=== PATIENT | male | born 1995 | race Asian ===

== ENCOUNTER 2023-09-04 20:08 | Emergency (ER) | payer OTHER, SELFPAY ==
[2023-09-04 20:33] VITALS: BP 138/86; PULSE 95; RESP 18; TEMP 37.1; O2SAT 98; BMI 24.8
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
[2023-09-04 21:16] LABS: Amphetamine Screen Urine Not Detected (Not Detect); Barbiturates, Urine Not Detected (Not Detect); Benzodiazepines Screen Urine Not Detected (Not Detect); Cannabinoid Screen Urine Not Detected (Not Detect); Cocaine Screen Urine Not Detected (Not Detect); Fentanyl, urine Not Detected (Not Detect); Opiate Screen Urine Not Detected (Not Detect); Phencyclidine Screen Urine Not Detected (Not Detect)
[2023-09-05 02:15] VITALS: BP 134/88; PULSE 88; RESP 16; O2SAT 98
--- NOTE | 2023-09-05 02:21 | PC.NURSE ---
states wait is too long and wants to go home.
== END 2023-09-05 02:21 | disposition left against medical advice (07) ==
PROVIDERS: Physician Assistant; Emergency Provider Emergency Medicine
DX: R20.0 Anesthesia of skin (principal); Z79.899 Other long term (current) drug therapy
CPT/HCPCS: 80307; 99282; 99284

== ENCOUNTER 2023-09-05 14:16 | Emergency (ER) | payer OTHER, SELFPAY ==
[2023-09-05 15:34] VITALS: BP 134/89; PULSE 86; RESP 17; TEMP 36.8; O2SAT 99; BMI 24.6
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
[2023-09-05 16:04] LABS: Appearance Urine Clear; Color Urine Yellow; Glucose Urine UA Negative (Negative); Leukocyte Esterase Urine Negative (Negative); Nitrite Urine Negative (Negative); Urine Blood Negative (Negative); Urine Ketones Negative (Negative); Urine Protein Negative (Neg-Trace)
[2023-09-05 16:06] LABS: Amphetamine Screen Urine Not Detected (Not Detect); Barbiturates, Urine Not Detected (Not Detect); Benzodiazepines Screen Urine Not Detected (Not Detect); Cannabinoid Screen Urine Not Detected (Not Detect); Cocaine Screen Urine Not Detected (Not Detect); Fentanyl, urine Not Detected (Not Detect); Opiate Screen Urine Not Detected (Not Detect); Phencyclidine Screen Urine Not Detected (Not Detect)
[2023-09-05 16:18] LABS: COVID-19 Test Negative (Negative); IDNOW Serial# 08D9AD1C
[2023-09-05 16:40] VITALS: BP 128/89; PULSE 89; RESP 18; O2SAT 99
== END 2023-09-05 16:44 | disposition home or self-care (01) ==
PROVIDERS: Physician Assistant Medical; Emergency Provider Emergency Medicine
DX: R20.0 Anesthesia of skin (principal); Z79.899 Other long term (current) drug therapy; Z11.52 Encounter for screening for COVID-19; Z20.822 Contact with and (suspected) exposure to COVID-19
CPT/HCPCS: 80307; 81003; 87635; 99283; 99284

== ENCOUNTER 2023-09-07 00:53 | Emergency (ER) | payer OTHER, SELFPAY ==
[2023-09-07 00:59] VITALS: BP 118/81; PULSE 105; RESP 16; TEMP 36.9; O2SAT 96; BMI 24.3
[2023-09-07 01:31] LABS: Hematocrit 47.4 % (42.0-52.0); Hemoglobin 16.7 g/dl (14.0-18.0); Mean Corpuscular HGB Conc 35.2 g/dl (31.0-36.0); Mean Corpuscular Hemoglobin 30.8 pg (27.0-33.0); Mean Corpuscular Volume 87.3 fL (80.0-98.0); Mean Platelet Volume 9.7 fL (9.4-12.4); Platelet Count 299 X10*3/uL (160-400); Red Blood Count 5.43 X10*6/uL (4.60-5.80); Red Cell Distribution Width 11.9 % (11.0-16.0); White Blood Count 10.9 X10*3/uL (4.8-10.8)
[2023-09-07 01:45] LABS: Alanine Aminotransferase 25 U/L (0-40); Albumin Level 4.5 g/dL (3.5-5.0); Alkaline Phosphatase 70 U/L (39-117); Anion Gap 13 (12-20); Aspartate Amino Transferase 18 U/L (5-37); Bilirubin Total 0.4 mg/dL (0.0-1.0); Blood Urea Nitrogen 9 mg/dL (9-16); Calcium 9.3 mg/dL (8.4-10.2); Carbon Dioxide 22 mmol/L (22-29); Chloride 108 mmol/L (96-108); Creatinine Clr Calc Pharmacy 120.4; Estimated Glomerular Filt Rate > 60; Glucose Random 105 mg/dL (60-115); Potassium 3.7 mmol/L (3.3-5.1); Sodium 139 mmol/L (135-145); Total Protein 7.4 g/dL (6.5-8.0)
[2023-09-07 01:46] LABS: Amphetamine Screen Urine Not Detected (Not Detect); Barbiturates, Urine Not Detected (Not Detect); Benzodiazepines Screen Urine Not Detected (Not Detect); Cannabinoid Screen Urine Not Detected (Not Detect); Cocaine Screen Urine Not Detected (Not Detect); Fentanyl, urine Not Detected (Not Detect); Opiate Screen Urine Not Detected (Not Detect); Phencyclidine Screen Urine Not Detected (Not Detect)
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
== END 2023-09-07 02:38 | disposition home or self-care (01) ==
PROVIDERS: Emergency Provider Student in an Organized Health Care Education/Training Program
DX: R42 Dizziness and giddiness (principal); Z79.899 Other long term (current) drug therapy
CPT/HCPCS: 36415; 80053; 80307; 85027; 99283; 99284

== ENCOUNTER 2023-11-03 09:53 | Emergency (ER) | payer OTHER, SELFPAY ==
[2023-11-03 09:58] VITALS: BP 122/84; PULSE 103; RESP 18; TEMP 35.9; O2SAT 96; BMI 23.2
--- NOTE | 2023-11-03 10:32 | ED.GENADULT ---
HPI - General Adult General Chief complaint: Dental/Oral Stated complaint: dental pain Time Seen by Provider: 11/03/23 10:31 Source: patient and other (patient's girlfriend) Mode of arrival: ambulatory Limitations: no limitations History of Present Illness HPI narrative: Patient is a 28 year old assigned male at with no reported medical history presenting to the emergency department today with right sided dental pain. Patient states that over the last 2 days he has had right sided dental pain. Patient denies any dizziness, lightheadedness, abdominal pain, nausea, vomiting, fever, chills, blurry vision, double vision, loss of vision, chest pain, difficulty breathing, shortness of breath, back pain, night sweats, pain with urination, increased urinary frequency, increased urinary urgency, blood in his urine or stool, syncope or a near syncopal episode, recent trauma or falls, bowel incontinence, bladder incontinence, bowel retention, bladder retention, or any other complaints at this time. Onset (ago): day(s) (2) Severity: mild Severity scale (1-10): 3 Quality: aching and dull Pain Consistency: constant Relieving factors: none Exacerbating factors: none Associated symptoms: denies other symptoms Treatments prior to arrival: NSAID and other (tylenol) Related Data Previous Rx's Medication Instructions Recorded chlorhexidine gluconate 0.12 % 15 ml buccal BID #118 mL 11/03/23 mouthwash (Peridex) naproxen 500 mg tablet 500 mg PO BID 7 days #14 tabs 11/03/23 penicillin V potassium 500 mg 500 mg PO BID 10 days #20 tabs 11/03/23 tablet Allergies Allergy/AdvReac Type Severity Reaction Status Date / Time No Known Allergies Allergy Verified 11/03/23 10:01 Review of Systems Constitutional: Constitutional: Reports no additional constitutional complaints, Denies chills, Denies fever(s) and Denies night sweats Eyes: Eyes: Reports no additional eye complaints, Denies blurry vision, Denies change in vision, Denies diplopia, Denies eye discharge, Denies loss of vision and Denies eye pain ENT: Denies dizziness Comments: right sided dental pain Cardiovascular: Cardiovascular: Reports no additional cardiovascular complaints, Denies chest pain, Denies lightheadedness, Denies Loss of Consciousness and Denies dyspnea Respiratory: Respiratory: Reports no additional respiratory complaints and Denies dyspnea Gastrointestinal: Gastrointestinal: Reports no additional gastrointestinal complaints, Denies abdominal pain, Denies melena, Denies hematochezia, Denies change in bowel habits and Denies change in stool character Genitourinary: Genitourinary: Reports no additional male genitourinary complaints, Denies hematuria, Denies oliguria, Denies difficulty urinating, Denies dysuria, Denies urinary frequency, Denies urinary hesitancy, Denies urinary incontinence and Denies urinary urgency Musculoskeletal: Musculoskeletal: Reports no additional musculoskeletal complaints, Denies numbness and Denies tingling Neurologic: Denies dizziness, Denies loss of vision, Denies numbness and Denies tingling Psychiatric: Psychiatric: Reports no additional psychiatric complaints Endocrine: Endocrine: Reports no additional endocrine complaints Hematologic/Lymphatic: Hematologic/Lymphatic: Reports no additional hematologic/lymphatic complaints Allergic/Immunologic: Allergic/Immunologic: Reports no additional allergic/immunologic complaints PMFSH Past Medical History Attestation statement: The following information was validated with the patient. (patient's girlfriend validated all information) Source: old records reviewed, nursing notes reviewed and other (patient's girlfriend provided additional history and confirmed the history provided by the patient.) Onset Date is defined in the Problem List Problems that require an onset date and time if occurred within 24 hrs of arrival to the ED Aortic Dissection and Rupture; Neurologic impairment; Cardiopulmonary Arrest; Endotracheal Intubation; Insertion or Replacement of Mechanical Circulatory Assist Device Social History Social History Substance Use Type: Marijuana Advance Directives: No Advance Directives Information Provided: No Physical Exam ED Vital Signs: Vital Signs - 24 hr 11/03/23 09:58 Temperature 96.7 F L Pulse Rate 103 H Respiratory Rate 18 Blood Pressure 122/84 Pulse Oximetry 96 Oxygen Delivery Method Room Air BMI result Body Mass Index 23.2 Const General: cooperative, no acute distress, alert and awake Nutritional Appearance: well nourished Orientation/consciousness: patient oriented x3 Limitations: no limitations HENMT Head: Yes normal to inspection and Yes atraumatic Ears: hearing grossly normal bilaterally and external ears normal General nose exam: Normal external nose present, no nasal discharge noted and no epistaxis Face and sinus: Yes normal facial exam, No abrasion and No laceration Mouth: Normal oral and palatal mucosa present, no drooling and no muffled voice Teeth and gingiva: poor dentition Teeth image: 1. obvious decay present to teeth 30, 31, and 32 with minimal surrounding erythema - no fluctuance Eyes General: appearance normal, both eyes and all related structures Periorbital: periorbital findings normal Eyelids: Yes eyelids normal Conjunctivae: conjunctivae normal Pupils: Equal, round and reactive pupils present EOM: EOMs intact bilaterally Neck Neck: Yes normal visual inspection, Yes full ROM and Yes no lymphadenopathy Chest Chest palpation & inspection: normal inspection of the chest Resp Effort & Inspection: normal respiratory effort and able to speak in complete sentences GI Inspection: Yes normal to inspection Neuro General: patient oriented x3 and moves all extremities Cranial nerves: Yes Equal, round and reactive pupils present Cognition (Neuro): normal cognition Motor exam (neuro): 5/5 motor strength present throughout Sensory Exam: Normal double simultaneous stimulation for sensation Coordination: [id number] test normal Extrem General: Yes normal to inspection, Yes full ROM and Yes capillary refill normal Psych Appearance: grossly normal Mental Status: mental status grossly normal Affect: normal affect Attitude: cooperative Thought process: Normal thought process present Thought content: Normal thought content present Insight: Good insight present (Psych) Medical Decision Making Medical Decision Making MDM Narrative: Patient is a 28 year old assigned male at with no reported medical history presenting to the emergency department today with right sided dental pain. Patient's physical exam was as noted in the physical exam portion of this note. No abscess appreciated to drain. I explained my physical exam findings to the patient. I answered all questions asked by the patient. I stressed the importance of the patient taking his medication as prescribed. I stressed the importance of the patient following up with his primary care provider and a dentist. I stressed the importance of the patient returning to the emergency department immediately if his symptoms were to worsen or if he were to develop any dizziness, shortness of breath, difficulty breathing, chest pain, blurry vision, loss of vision, nausea, vomiting, abdominal pain, fever, chills, back pain, or any other complaints. Patient and the patient's girlfriend verbalized agreement and understanding with this treatment plan and discharge. Differential Diagnosis Differential Diagnoses: The differential diagnosis associated with the presentation includes Dental abscess Dental decay Dental infection Dental pain Admission/Observation Consideration of admission/observation: Escalation of care including admission/observation considered Patient would have been admitted to the hospital had his clinical presentation warranted hospital admission. Independent Historian Clinical information obtained from an independent historian. History obtained from or confirmed by: Other (patient's girlfriend provided additional history and confirmed the history provided by the patient.) Prescription Management I considered prescription management with: Pain Medication (patient prescribed pain medication) and Antibiotic (patient prescribed an antibiotic for dental infection) Discharge Plan Discharge Clinical Impression: Toothache, Dental infection Patient Disposition: Home, Self-Care Instructions: Toothache (ED) Additional Instructions: You have a dental infection around teeth 30, 31, and 32. Follow up with your primary care provider and your dentist. Take your antibiotic as prescribed. Return to the emergency department immediately if your symptoms worsen or if you develop any dizziness, shortness of breath, difficulty breathing, chest pain, blurry vision, loss of vision, nausea, vomiting, abdominal pain, fever, chills, back pain, or any other complaints. Call or visit any of the clinics below to establish with a dentist: [facility] [address] [place] [address] [facility] [address] [facility], [address] [address] [facility] [address] [place] [id number] [facility] [address] [place] [address] [place] [address] [place] [address] Prescriptions: New penicillin V potassium 500 mg tablet 500 mg PO BID 10 Days Qty: 20 0RF chlorhexidine gluconate [Peridex] 0.12 % mouthwash 15 ml buccal BID Qty: 118 0RF naproxen 500 mg tablet 500 mg PO BID 7 Days Qty: 14 0RF Referrals: [facility] [place] [facility] [Provider Group] (Call to establish and follow up with a primary care provider. If you already have a primary care provider, please follow up with them.) [facility] [place] Primary Laura Reeves [Provider Group] (Call to establish and follow up with a primary care provider. If you already have a primary care provider, please follow up with them.) [facility] [place] Primary [facility] [Provider Group] (Call to establish and follow up with a primary care provider. If you already have a primary care provider, please follow up with them.) Stand Alone Forms: Work/School Release Print Language: Latvian
[2023-11-03] MEDS: HYDROcodone Bit/Acetam 5/325 TABLET 1 TAB PO (10:47)
== END 2023-11-03 11:00 | disposition home or self-care (01) ==
PROVIDERS: Emergency Provider Emergency Medicine
DX: K04.7 Periapical abscess without sinus (principal)
CPT/HCPCS: 99283